=== PATIENT | female | born 1945 | race Caucasian/White ===

== ENCOUNTER 2020-04-25 12:48 | Inpatient (IN) | payer MEDICARE, OTHER, SELFPAY ==
[2020-04-25] VITALS (9 sets, daily range): BP systolic 112–154; BP diastolic 69–108; PULSE 80–102; RESP 16–20; TEMP 36.3–36.6; O2SAT 91–99; BMI 41.1
--- NOTE | 2020-04-25 13:10 | CT_ITS ---
WS: [id number] CT HEAD NONCONTRAST HISTORY: Symptoms of Acute Stroke TECHNIQUE: Contiguous axial imaging performed through the brain in 2.5 mm imaging. Bone and soft tiss ue windows. Sagittal and coronal reformats reviewed. All CT scans at [facility] use at le ast one of these dose optimization techniques: automated exposure control; mA and/or kV adjustment pe r patient size (includes targeted exams where dose is matched to clinical indication); or iterative r econstruction. DLP: 1194.41 mGy.cm COMPARISON: None available. No acute intracranial hemorrhage, midline shift or mass effect. Moderate atrophy and severe low attenuation within the white matter. Age indeterminate but not acute loss of the dawkins-white matter differentiation in the posterior RIGHT parietal region. There are addit ional areas of severe chronic white matter disease and prior lacunar infarcts in the basal ganglia. Ventricles: Normal size with no hydrocephalus. Moderate amount of calcified plaque through the intracranial carotid arteries. Paranasal sinuses: As visualized are clear. Mastoid air cells: Well pneumatized. Calvarium and scalp: Skull is intact with no soft tissue edema or swelling. CT/CT head wo con* [id number] IMPRESSION: 1. No acute intracranial hemorrhage or edema. 2. Severe white matter disease. Age-indeterminate posterior RIGHT parietal inf arct. May be subacute. There are additional chronic ischemic changes in bilater al lacunar infarcts with volume loss and encephalomalacia.
--- NOTE | 2020-04-25 13:10 | ECG_ITS ---
[facility] Test Date: 2020-04-25 Pat Name: Cathy Levin Department: Room: Gender: Female Operator Supply: : 1945 Requested By: Antohny Rivas Order Number: [id number] Debo MD: Joey Russell M.D. Measurements Intervals [place] Rate: 102 P: [place]: QRS: -7 QRSD: 85 T: 2 QT: 356 QTc: 464 Interpretive Statements ATRIAL FIBRILLATION WITH RAPID VENTRICULAR RESPONSE WITH ABERRANT CONDUCTION OR VENTRICULAR PREMATURE COMPLEXES ANTEROSEPTAL MYOCARDIAL INFARCTION , OF INDETERMINATE AGE [40+ ms Q WAVE IN V1-V4] No previous ECG available for comparison Electronically Signed On 04-25-2020 17:06:03 FACILITY TECHNICIAN by Joey Russell M.D. [id number]
--- NOTE | 2020-04-25 13:58 | ED_ITS ---
HPI - Altered Mental Status General: Chief Complaint: Altered Mental Status Stated Complaint: AMS Time Seen by Provider: 04/25/20 13:03 History of Present Illness: HPI narrative: 74-year-old female comes in complaining of altered mental status irritable disoriented is gotten markedly worse over the last 36 hours. She had a stroke 17 or 18 years ago according to her but this is new and different behavior for her. At her normal baseline there is no cognitive or memory issues that they noted in the past. She is complaining of headache and neck pain she has photophobia and autophobia. She denies chest pain shortness of breath abdominal pain dysuria urgency or frequency. MD complaint: altered mental status and confusion Onset (ago): day(s) (03/26) Timing confirmed by: spouse Severity: severe Consistency of symptoms: Getting Worse Associated symptoms: Deny auditory hallucinations, visual hallucinations, delusions, depression, homicidal ideation, racing thoughts or suicidal ideation Review of Systems Const: Denies: fever(s), chills, body aches, change in appetite, fatigue or malaise ENMT: Denies: throat pain, ear or mastoid pain, nasal discharge or nasal congestion Card: Denies: chest pain, edema, dyspnea on exertion or orthopnea Resp: Denies: dyspnea, productive cough or non-productive cough GI: Denies: abdominal pain, nausea, vomiting, hematemesis, coffee ground emesis, diarrhea, constipation, bloating, hematochezia or melena : Denies: flank pain, difficulty voiding, dysuria, urinary frequency or urinary urgency Skin/Breast: Denies: rash or pruritus Neuro: Reports: headache(s) Psych: Denies: depression, visual hallucinations, auditory hallucinations, suicidal ideation or homicidal ideation [facility] PFSH: Medical History (Updated 04/26/20 @ 10:01 by Anthony Mcclelland DO) CVA (cerebral vascular accident) Diabetes mellitus Hypertension Physical Exam HENMT: COMMON NORMALS: normocephalic, atraumatic and hearing grossly normal bilaterally HEAD & SCALP: normocephalic and atraumatic Eye: COMMON NORMALS: Equal, round and reactive pupils present, EOMs intact bilaterally, conjunctivae normal and no scleral icterus CONJUNCTIVA: Yes conjunctivae normal PUPIL: Yes Equal, round and reactive pupils present Neck/C-Spine: COMMON NORMALS: full ROM, no lymphadenopathy, supple and no JVD Lymph: LYMPHATIC: no lymphadenopathy noted and no lymphedema noted Resp: COMMON NORMALS: normal respiratory effort, No retractions, No use of accessory muscles and clear to auscultation bilaterally AUSCULTATION: clear to auscultation bilaterally Cardio: COMMON NORMALS: no JVD, regular rate, regular rhythm and No murmurs present (Cardio) RATE: regular rate RHYTHM: regular rhythm GI: COMMON NORMALS: Soft to palpation and No hepatosplenomegaly present AUSCULTATION: Yes normoactive bowel sounds PALPATION: Yes Soft to palpation, No Tenderness to palpation present (GI), No Guarding due to palpation present (GI) and Yes No hepatosplenomegaly present Extremity: COMMON NORMALS: normal to inspection, capillary refill normal, no clubbing, cyanosis or edema, no calf tenderness and no pedal edema Psych: THOUGHT CONTENT: No delusions Skin: COMMON NORMALS: no rashes or lesions noted GENERAL SKIN EXAM: no rashes or lesions noted Course Vital Signs: Vital signs: Vital Signs Temperature 97.5 F L 04/26/20 07:37 Pulse Rate 112 H 04/26/20 08:35 Respiratory Rate 18 04/26/20 07:37 Blood Pressure 141/84 04/26/20 07:37 Pulse Oximetry 92 04/26/20 08:35 MDM - Altered Mental Status MDM Narrative: Medical decision making narrative: Patient has UTI with along with altered mental status there is a question of subacute CVA. Will admit for further evaluation treatment for cystitis. Lab Data: Labs: Lab Results 04/25/20 04/25/20 04/25/20 Range/Units 14:26 14:30 14:30 WBC (4.0-10.0) 10^3/ uL RBC (4.1-5.3) 10^6/u L Hgb (11.5-15.3) g/dL Hct (37.0-47.0) % MCV (81-99) fL MCH (28.0-34.0) pg MCHC (30.0-36.0) g/dL RDW (12.1-15.1) % Plt Count (130-400) 10^3/c mm MPV (7.4-10.4) fL Neut % (Auto) % Lymph % (Auto) % [place] % (Auto) % Eos % (Auto) % Baso % (Auto) % Neut # (Auto) (1.8-7.7) 10^3/u L Lymph # (Auto) (0.8-4.8) 10^3/u L [place] # (Auto) (0.2-0.9) 10^3/u L Eos # (Auto) (0.0-0.8) 10^3/u L Baso # (Auto) (0.0-0.1) 10^3/u L Nucleated RBC % (a uto) % Nucleated RBCs # /100WBC PT (12.1-14.9) SECO NDS INR (0.8-1.2) APTT (23.9-36.7) SECO NDS Sodium Potassium Chloride Carbon Dioxide Anion Gap BUN Creatinine GFR Calculation Glucose POC Glucose 135 H (70-110) mg/dL Calculated Osmolal ity Calcium Total Bilirubin AST ALT Alkaline Phosphata se Total Protein Albumin Globulin Urine Color Dark yellow (Yellow) Urine Appearance Cloudy (CLEAR) Urine pH 5 (5-7) Ur Specific Gravit y 1.020 (1.005-1.030) Urine Protein 1+ H (Negative) Urine Glucose (UA) Norm (Normal) Urine Ketones 1+ H (Negative) Urine Blood 3+ H (Negative) Urine Nitrate Negative (Negative) Urine Bilirubin 1+ H (Negative) Urine Urobilinogen Norm (Negative) mg/dL Ur Leukocyte Key[place] ase 2+ H (Negative) Urine RBC 15-25 H (0-2) /hpf Urine WBC 40-55 H (0-5) /hpf Ur Squamous Epith Cells 0-4 H (0-5) /hpf Amorphous Sediment Not Reportable Urine Bacteria 4+ H (NONE) /hpf Urine Opiates Scre en Negative (Negative) ng/mL Ur Barbiturates Sc reen Negative (Negative) ng/mL Ur Phencyclidine S crn Negative (Negative) ng/mL Ur Amphetamines Sc reen Negative (Negative) ng/mL U Benzodiazepines Scrn Negative (Negative) ng/mL Urine Cocaine Scre en Negative (Negative) ng/mL U Marijuana (THC) Screen Negative (Negative) ng/mL 04/25/20 04/25/20 04/25/20 Range/Units 15:20 15:20 15:20 WBC 9.8 (4.0-10.0) 10^3/ uL RBC 5.19 (4.1-5.3) 10^6/u L Hgb 15.5 H (11.5-15.3) g/dL Hct 47.1 H (37.0-47.0) % MCV 90.8 (81-99) fL MCH 29.9 (28.0-34.0) pg MCHC 32.9 (30.0-36.0) g/dL RDW 13.2 (12.1-15.1) % Plt Count 319 (130-400) 10^3/c mm MPV 11.1 H (7.4-10.4) fL Neut % (Auto) 66.8 % Lymph % (Auto) 21.9 % [place] % (Auto) 7.9 % Eos % (Auto) 2.5 % Baso % (Auto) 0.5 % Neut # (Auto) 6.56 (1.8-7.7) 10^3/u L Lymph # (Auto) 2.2 (0.8-4.8) 10^3/u L [place] # (Auto) 0.8 (0.2-0.9) 10^3/u L Eos # (Auto) 0.3 (0.0-0.8) 10^3/u L Baso # (Auto) 0.1 (0.0-0.1) 10^3/u L Nucleated RBC % (a uto) 0 % Nucleated RBCs # 0.0 /100WBC PT 13.40 (12.1-14.9) SECO NDS INR 0.99 (0.8-1.2) APTT 25.0 (23.9-36.7) SECO NDS Sodium Cancelled Potassium Cancelled Chloride Cancelled Carbon Dioxide Cancelled Anion Gap Cancelled BUN Cancelled Creatinine Cancelled GFR Calculation Cancelled Glucose Cancelled POC Glucose (70-110) mg/dL Calculated Osmolal ity Cancelled Calcium Cancelled Total Bilirubin Cancelled AST Cancelled ALT Cancelled Alkaline Phosphata se Cancelled Total Protein Cancelled Albumin Cancelled Globulin Cancelled Urine Color (Yellow) Urine Appearance (CLEAR) Urine pH (5-7) Ur Specific Gravit y (1.005-1.030) Urine Protein (Negative) Urine Glucose (UA) (Normal) Urine Ketones (Negative) Urine Blood (Negative) Urine Nitrate (Negative) Urine Bilirubin (Negative) Urine Urobilinogen (Negative) mg/dL Ur Leukocyte [place] ase (Negative) Urine RBC (0-2) /hpf Urine WBC (0-5) /hpf Ur Squamous Epith Cells (0-5) /hpf Amorphous Sediment Urine Bacteria (NONE) /hpf Urine Opiates Scre en (Negative) ng/mL Ur Barbiturates Sc reen (Negative) ng/mL Ur Phencyclidine S crn (Negative) ng/mL Ur Amphetamines Sc reen (Negative) ng/mL U Benzodiazepines Scrn (Negative) ng/mL Urine Cocaine Scre en (Negative) ng/mL U Marijuana (THC) Screen (Negative) ng/mL 04/25/20 Range/Units 16:45 WBC (4.0-10.0) 10^3/ uL RBC (4.1-5.3) 10^6/u L Hgb (11.5-15.3) g/dL Hct (37.0-47.0) % MCV (81-99) fL MCH (28.0-34.0) pg MCHC (30.0-36.0) g/dL RDW (12.1-15.1) % Plt Count (130-400) 10^3/c mm MPV (7.4-10.4) fL Neut % (Auto) % Lymph % (Auto) % [place] % (Auto) % Eos % (Auto) % Baso % (Auto) % Neut # (Auto) (1.8-7.7) 10^3/u L Lymph # (Auto) (0.8-4.8) 10^3/u L [place] # (Auto) (0.2-0.9) 10^3/u L Eos # (Auto) (0.0-0.8) 10^3/u L Baso # (Auto) (0.0-0.1) 10^3/u L Nucleated RBC % (a uto) % Nucleated RBCs # /100WBC PT (12.1-14.9) SECO NDS INR (0.8-1.2) APTT (23.9-36.7) SECO NDS Sodium 139 Potassium 3.6 Chloride 105 Carbon Dioxide 21 L Anion Gap 16.6 BUN 19 Creatinine 0.9 GFR Calculation Not Reportable Glucose 132 H POC Glucose (70-110) mg/dL Calculated Osmolal ity 292 Calcium 10.7 H Total Bilirubin 0.8 AST 16 ALT 16 Alkaline Phosphata se 110 H Total Protein 7.2 Albumin 3.8 Globulin 3.4 Urine Color (Yellow) Urine Appearance (CLEAR) Urine pH (5-7) Ur Specific Gravit y (1.005-1.030) Urine Protein (Negative) Urine Glucose (UA) (Normal) Urine Ketones (Negative) Urine Blood (Negative) Urine Nitrate (Negative) Urine Bilirubin (Negative) Urine Urobilinogen (Negative) mg/dL Ur Leukocyte [place] ase (Negative) Urine RBC (0-2) /hpf Urine WBC (0-5) /hpf Ur Squamous Epith Cells (0-5) /hpf Amorphous Sediment Urine Bacteria (NONE) /hpf Urine Opiates Scre en (Negative) ng/mL Ur Barbiturates Sc reen (Negative) ng/mL Ur Phencyclidine S crn (Negative) ng/mL Ur Amphetamines Sc reen (Negative) ng/mL U Benzodiazepines Scrn (Negative) ng/mL Urine Cocaine Scre en (Negative) ng/mL U Marijuana (THC) Screen (Negative) ng/mL Discharge Plan Discharge Patient Disposition: Admitted As Inpatient Admit Provider: Derick Onofre Clinical Impression: UTI (urinary tract infection), Acute encephalopathy, Diabetes mellitus, Hypertension Condition: Stable Coding Level of Care Code ED Manual Lathe Operator for Antoniag Fwd Exam Comprehensive
--- NOTE | 2020-04-25 14:29 | PC.NURSE ---
pt and pt's spouse have been very abrasive to staff and resistant to care. pt spouse keeps mentioning that we dropped his on the floor last time . Pt and Pt's spouse state that we are not allowed to place an IV or draw blood until they are told for sure what medication will be administered through an IV. ED physician notified.
[2020-04-25 14:31] LABS: Glucose Point of Care 135 mg/dL (70-110)
[2020-04-25 14:47] LABS: Bilirubin Urine 1+ (Negative); Blood Urine 3+ (Negative); Glucose Urine UA Norm (Normal); Ketones Urine 1+ (Negative); Leukocyte Esterase Urine 2+ (Negative); Nitrate Urine Negative (Negative); Protein Urine 1+ (Negative); Urine Appearance Cloudy (CLEAR); Urine Color Dark Yellow (Yellow); Urobilinogen Urine Norm (Negative); pH Urine 5 (5-7)
[2020-04-25 14:48] LABS: Add Urine Microscopic? YES
[2020-04-25 14:53] LABS: Amphetamines Screen Urine Negative (Negative); Barbiturates Screen Urine Negative (Negative); Benzodiazepines Screen Urine Negative (Negative); Cocaine Screen Urine Negative (Negative); Opiate Screen Urine Negative (Negative); PCP Screen Urine Negative (Negative); THC Screen Urine Negative (Negative)
[2020-04-25 14:54] LABS: Add Urine Culture? Yes; Bacteria Urine 4+ /hpf; RBC Urine 15-25 /hpf (0-2); Squamous Epithelial Cell Urine 0-4 /hpf (0-5); WBC Urine 40-55 /hpf (0-5)
[2020-04-25 15:37] LABS: Basophils # 0.1 10^3/uL (0.0-0.1); Basophils % 0.5 %; Eosinophils # 0.3 10^3/uL (0.0-0.8); Eosinophils % 2.5 %; Hematocrit 47.1 % (37.0-47.0); Hemoglobin 15.5 g/dL (11.5-15.3); Lymphocytes # 2.2 10^3/uL (0.8-4.8); Lymphocytes % 21.9 %; Mean Corpuscular HGB Conc 32.9 g/dL (30.0-36.0); Mean Corpuscular Hemoglobin 29.9 pg (28.0-34.0); Mean Corpuscular Volume 90.8 fL (81-99); Mean Platelet Volume 11.1 fL (7.4-10.4); Monocytes # 0.8 10^3/uL (0.2-0.9); Monocytes % 7.9 %; Neutrophils # 6.56 10^3/uL (1.8-7.7); Neutrophils % 66.8 %; Nucleated Red Blood Cells % 0 %; Platelet Count 319 10^3/cmm (130-400); Red Blood Count 5.19 10^6/uL (4.1-5.3); Red Cell Distribution Width 13.2 % (12.1-15.1); White Blood Count 9.8 10^3/uL (4.0-10.0)
[2020-04-25 15:48] LABS: INR 0.99 (0.8-1.2)
[2020-04-25] MEDS: cefTRIAXone 1,000 MG in sodium chloride 0.9% (plus) 50 ML 100 MG IV (16:39)
--- NOTE | 2020-04-25 16:43 | PC.NURSE ---
pt continues to be abrasive towards staff. pt refuses to allow BP cuff to remain on arm or pulse ox on finger.
[2020-04-25 17:30] LABS: Alanine Aminotransferase 16 U/L (0-33); Albumin Level 3.8 g/dL (3.5-5.2); Alkaline Phosphatase 110 IU/L (35-105); Aspartate Amino Transferase 16 U/L (0-32); Blood Urea Nitrogen 19 mg/dL (8-23); Calcium 10.7 mg/dL (8.5-10.5); Carbon Dioxide 21 mmol/L (22-29); Chloride 105 mmol/L (98-107); Globulin 3.4 g/dL (1.3-4.6); Glucose 132 mg/dL (65-115); Osmolality Calculated 292 mOsm/kg (285-295); Sodium 139 mmol/L (136-145); Total Bilirubin 0.8 mg/dL (0.15-1.2); Total Protein 7.2 g/dL (6.6-8.7)
[2020-04-25 17:49] LABS: Anion Gap 16.6 (5-19); Potassium 3.6 mmol/L (3.5-5.1)
--- NOTE | 2020-04-25 18:12 | XRR_ITS ---
PROCEDURE INFORMATION: Exam: XR Chest, 1 View Exam date and time: 04/25/2020 6:14 PM Age: 74 years old Clinical indication: Shortness of breath; Patient HX: Altered mental status, no chest complaints; Additional info: SOB TECHNIQUE: Imaging protocol: XR of the chest Views: 1 view. COMPARISON: No relevant prior studies available. FINDINGS: Lungs: Lungs are well aerated without a focal area of consolidation. Pleural spaces: Unremarkable. No pleural effusion. No pneumothorax. Heart/Mediastinum: The cardiac silhouette appears enlarged, some of which is magnification related to the AP projection. Bones/joints: Unremarkable. XR/XR chest 1V portable [id number] IMPRESSION: Lungs are well aerated without a focal area of consolidation.
--- NOTE | 2020-04-25 18:12 | PM.HP ---
Providers/Chief Complaint Primary Care Provider: Omer Caban DO Chief Complaint: AMS History of Present Illness Cathy Levin is a 74 year old female with PMH of CVA with residual rt sided weakness,HTN,DM, came in with c/o experiencing fall 3 days back at her home after that she is also having some confusion and headache.Post fall she deny any loss of consciousness,or any seizure like activity. Upon arrival in the ER she was worked up for the above mentioned complain. C.T head without Contrast: No acute intracranial hemorrhage or edema.Severe white matter disease. EKG: Atrial Fibrillation. Xray chest: Urine Analysis : Dirty ECA medications: Cef 1 gm * 1 dose Morphine 2 MG I.V * 1 DOSE as per ER Physician. Review of Systems Const: Denies: fever(s), chills, body aches, change in appetite or diaphoresis Card: Denies: palpitations, edema, swelling of feet/ankles, dyspnea on exertion, orthopnea or leg pain with exertion Resp: Denies: dyspnea, productive cough, wheezing or pain on inspiration GI: Denies: abdominal pain, nausea, vomiting, diarrhea or constipation : Denies: flank pain Musc: Denies: back pain, extremity pain or extremity swelling Medications/Allergies Home Medications Medication Instructions Recorded Confirmed Last Taken Type amlodipine 10 mg PO QAM 04/25/20 04/25/20 04/25/20 History aspirin [Aspir-81] 81 mg PO BID 04/25/20 04/25/20 Unknown History glimepiride 6 mg PO QAM 04/25/20 04/25/20 04/25/20 History losartan 100 mg PO DAILY 04/25/20 04/25/20 Unknown History metformin 1,000 mg PO BID 04/25/20 04/25/20 04/25/20 History metoprolol tartrate 100 mg PO BID 04/25/20 04/25/20 04/25/20 History naproxen sodium [Aleve] 220 mg PO Q12H PRN 04/25/20 04/25/20 Unknown History Allergies Allergy/AdvReac Type Severity Reaction Status Date / Time eye drops Allergy ADR-Itching Uncoded 04/25/20 13:08 PFSH Acute PFSH: Medical History (Updated 04/25/20 @ 18:51 by Derick Onofre MD) CVA (cerebral vascular accident) Diabetes mellitus Hypertension Vitals/I&O/Wt Last Vital Signs Temp 97.3 F L 04/25/20 13:02 Pulse 98 04/25/20 16:42 Resp 19 H 04/25/20 16:42 BP 154/104 04/25/20 17:07 Pulse Ox 95 04/25/20 14:30 Weight last 48 hrs Weight 108.862 kg Physical Exam Const: COMMON NORMALS: patient oriented x3 HENMT: COMMON NORMALS: normocephalic and atraumatic HEAD & SCALP: normocephalic and atraumatic Chest: CHEST: Yes Symmetrical chest wall rise Resp: COMMON NORMALS: normal respiratory effort and clear to auscultation bilaterally EFFORT & INSPECTION: Yes symmetric chest movement AUSCULTATION: clear to auscultation bilaterally Cardio: COMMON NORMALS: regular rate, regular rhythm, S1 normal heart sound present, S2 normal heart sound present, No gallops present (Cardio), No murmurs present (Cardio), No rub (Cardio) and Peripheral pulses 2+ throughout RATE: regular rate RHYTHM: regular rhythm HEART SOUNDS: S1 normal heart sound present and S2 normal heart sound present PERIPHERAL PULSES: Peripheral pulses 2+ throughout GI: COMMON NORMALS: Normal to inspection, nondistended, normoactive bowel sounds present, Soft to palpation, non-tender, No hepatosplenomegaly present and no masses AUSCULTATION: Yes normoactive bowel sounds PALPATION: Yes Soft to palpation and Yes No hepatosplenomegaly present RECTAL EXAM: deferred Extremity: COMMON NORMALS: no clubbing, cyanosis or edema and no pedal edema Neuro: COMMON NORMALS: patient oriented x3 Data : 04/25/20 15:20 04/25/20 16:45 Micro: Microbiology 04/25/20 16:45 Blood Culture - Preliminary Blood SPECIMEN COLLECTED 04/25/20 16:45 Blood Culture - Preliminary Blood SPECIMEN COLLECTED A&P Assessment and plan (1) Acute encephalopathy: Ac Encephalopathy likely 2/2 UTI r/o other causes C.T head without Contrast: No acute intracranial hemorrhage or edema.Severe white matter disease. EKG: Atrial Fibrillation. Xray chest: Urine Analysis: Dirty MRI Brain without Contrast 2 D ECHO Carotid Doppler Urine Culture Tele Cef 1 gm q24 h daily Status: Acute (2) Afib: New Onset A.fib Continue Metoprolol.T : 100 MG PO BID Eliquis 5 MG Q12 H Daily Status: Acute (3) UTI (urinary tract infection): Status: Acute (4) CVA (cerebral vascular accident): Status: Acute (5) Hypertension: Status: Acute (6) Diabetes mellitus: Status: Acute Additional A&P Information DVT PPX : Lovenox 40 mg sc daily Code status :Full code Attestations Medical Necessity Statement*: Patient needs to be in hospital for the management and work up of Ac Encephalopathy. Coding Level of Care Code Acute Folder Taper Operator for g Fwd Exam Detailed Diagnoses Acute encephalopathy G93.40 Afib I48.91 UTI (urinary tract infection) N39.0 CVA (cerebral vascular accident) I63.9 Hypertension I10 Diabetes mellitus E11.9
[2020-04-25] MEDS: morphine 4 mg/mL SDV 1 mL IVP (18:23)
--- NOTE | 2020-04-25 18:48 | ECG_ITS ---
[facility] Test Date: 2020-04-25 Pat Name: Cathy Levin Department: Room: 254 Gender: Female Safety Admin Assistant: : 1945 Requested By: Derick Onofre Order Number: [id number] Reading MD: CELSA SHERWOOD Measurements Intervals [place] Rate: 104 P: [place]: QRS: -12 QRSD: 88 T: -61 QT: 344 QTc: 454 Interpretive Statements ATRIAL FIBRILLATION WITH RAPID VENTRICULAR RESPONSE ANTEROSEPTAL MYOCARDIAL INFARCTION [40+ ms Q WAVE IN V1-V4], OF INDETERMINATE AGE Compared to ECG 04/25/2020 13:07:52 Aberrant conduction of supraventricular beat(s) no longer present Ventricular premature complex(es) no longer present Myocardial infarct finding still present Electronically Signed On 04-26-2020 18:10:12 BARREL DRILLER by CELSA SHERWOOD [id number]
--- NOTE | 2020-04-25 19:08 | PC.NURSE ---
report received from AZAM Joe and care transferred to AZAM Mukherjee
--- NOTE | 2020-04-25 20:00 | NUR.SHIFT ---
Andrea RN at bedside with this nurse Patient's NIHSS scale is a 1 at this time.
[2020-04-25 20:58] LABS: Glucose Point of Care 112 mg/dL (70-110)
--- NOTE | 2020-04-25 21:01 | ECG_ITS ---
[facility] Test Date: 2020-04-25 Pat Name: Cathy Levin Department: Room: 254 Gender: Female Sales Floor Manager: : 1945 Requested By: Derick Onofre Order Number: [id number] Reading MD: CELSA SHERWOOD Measurements Intervals [place] Rate: 103 P: [place]: QRS: -13 QRSD: 94 T: 0 QT: 303 QTc: 398 Interpretive Statements ATRIAL FIBRILLATION WITH RAPID VENTRICULAR RESPONSE ANTEROSEPTAL MYOCARDIAL INFARCTION [40+ ms Q WAVE IN V1-V4], OF INDETERMINATE AGE Compared to ECG 04/25/2020 22:36:15 No significant changes Electronically Signed On 04-26-2020 18:02:42 DISTRIBUTION CENTER SUPERVISOR by CELSA SHERWOOD [id number]
[2020-04-25] MEDS: HYDROcodone-acetaminophen 5-325 mg Tablet 1 TAB PO (21:37)
[2020-04-25 21:46] LABS: Troponin(5th) Baseline 13 ng/L (0-10)
[2020-04-25] MEDS: enoxaparin 40 mg/0.4 mL Syringe SUBCUT (23:08)
[2020-04-25] MEDS: sodium chloride 0.9% 1,000 ML 100 ML IV (23:08)
[2020-04-25 23:15] LABS: SARS Covid-2 Antigen Negative (Negative)
[2020-04-25 23:24] LABS: Troponin 5 2HR 12.63 ng/L (0-10)
[2020-04-25 23:31] LABS: Troponin 5 2HR Delta -0.37 ABS# (0-10)
[2020-04-26] VITALS (7 sets, daily range): BP systolic 110–141; BP diastolic 78–88; PULSE 81–112; RESP 16–20; TEMP 36.4–37.2; O2SAT 90–96
[2020-04-26 03:12] LABS: Basophils % 0.3 %; Eosinophils # 0.3 10^3/uL (0.0-0.8); Eosinophils % 3.2 %; Hematocrit 42.1 % (37.0-47.0); Hemoglobin 13.6 g/dL (11.5-15.3); Lymphocytes # 1.9 10^3/uL (0.8-4.8); Lymphocytes % 21.6 %; Mean Corpuscular HGB Conc 32.3 g/dL (30.0-36.0); Mean Corpuscular Hemoglobin 29.8 pg (28.0-34.0); Mean Corpuscular Volume 92.3 fL (81-99); Mean Platelet Volume 11.4 fL (7.4-10.4); Monocytes # 0.8 10^3/uL (0.2-0.9); Monocytes % 8.8 %; Neutrophils % 65.7 %; Nucleated Red Blood Cells % 0 %; Platelet Count 293 10^3/cmm (130-400); Red Blood Count 4.56 10^6/uL (4.1-5.3); Red Cell Distribution Width 13.2 % (12.1-15.1)
[2020-04-26 03:53] LABS: INR 1.07 (0.8-1.2)
[2020-04-26 03:54] LABS: Partial Thromboplastin Time 32.4 SECONDS (23.9-36.7)
[2020-04-26 04:11] LABS: NT Pro B Type Natriuretic Pept 1889 pg/mL (0-125); Procalcitonin 0.13 ng/mL (0-0.5)
[2020-04-26 04:14] LABS: Albumin Level 3.4 g/dL (3.5-5.2); Alkaline Phosphatase 121 IU/L (35-105); Blood Urea Nitrogen 17 mg/dL (8-23); Calcium 10.2 mg/dL (8.5-10.5); Carbon Dioxide 22 mmol/L (22-29); Chloride 108 mmol/L (98-107); Glucose 105 mg/dL (65-115); Magnesium 1.5 mg/dL (1.7-2.3); Osmolality Calculated 292 mOsm/kg (285-295); Sodium 140 mmol/L (136-145); Thyroid Stimulating Hormone 2.79 uIU/mL (0.27-4.20); Total Bilirubin 0.8 mg/dL (0.15-1.2); Total Protein 6.4 g/dL (6.6-8.7)
[2020-04-26 04:22] LABS: Alanine Aminotransferase 44 U/L (0-33); Anion Gap 13.3 (5-19); Aspartate Amino Transferase 79 U/L (0-32); Potassium 3.3 mmol/L (3.5-5.1)
[2020-04-26 04:29] LABS: Troponin 5 6HR 14.47 ng/L (0-10); Troponin 5 6HR Delta 1.47 ng/L (0-12)
--- NOTE | 2020-04-26 07:13 | PC.NURSE ---
Report to Criss Conrad RN. Patient scored a 1 on her NIH scale. Patient is at bedside. Patient is a 2 assist to get to the bedside commode.
[2020-04-26] MEDS: HYDROcodone-acetaminophen 5-325 mg Tablet 1 TAB PO (07:31)
--- NOTE | 2020-04-26 08:30 | PC.NURSE ---
Extrusion Die Template Maker received phone call from MRI stating that patient would be able to get her MRI at 1015 today. at bedside is in agreement with this as long as patient is able to be sedated for the MRI as she is severely claustrophobic. Extrusion Die Template Maker spoke with Dr. Onofre and it was said that there was a one time order for Ativan 2mg IVP to be given prior to MRI yesterday. I explained to Dr. Onofre that the order was no longer active and would need to be renewed. Dr. Onofre ok with new order to be placed. Patient to be given Ativan 2mg IVP prior to MRI. Verbal order placed in chart
[2020-04-26] MEDS: sodium chloride 0.9% 1,000 ML 100 ML IV (08:49)
[2020-04-26] MEDS: aspirin 81 mg EC Tablet PO (08:50)
--- NOTE | 2020-04-26 09:20 | PC.NURSE ---
Patient observed to be having heart rate of 130-[address] Onofre notified in person and rate/rhythm reviewed with Dr. Onofre. Per Dr. Onofre patient is to have Metoprolol 5mg IVP now and to continue her Metoprolol 100 mg BID from home with her first dose starting now. Dr. Onofre also gave verbal order for Metoprolol 5 mg IVP Q6H PRN for heart rate greater than 120 but to hold if her SBP was less than 120. All verbal orders read back and entered in computer with Dr. Onofre present to confirm.
[2020-04-26] MEDS: metoprolol tartrate 1 mg/1 mL SDV 5 mL 5 MG IV (09:48)
[2020-04-26] MEDS: metoprolol tartrate 50 mg Tablet 100 MG PO ×2 (09:49→20:35)
[2020-04-26] MEDS: LORazepam 2 mg/mL INJ 1 mL IVP (10:09)
--- NOTE | 2020-04-26 10:10 | PC.NURSE ---
Ambulance personnel here to take patient for her MRI. Ativan 2mg IVP given as ordered per Dr. Onofre for sedation. It was verbalized to ambulance personnel that patient had been running tachycardia and in AFIB and that patient had just received a dose of metoprolol 5mg IVP to drop her heart rate from 130-180. Ambulance personnel verbalized understanding. Patient's heart rate verified on telemetry running at 113-120. Telemetry removed and patient assisted to [facility]3 assist due to sedation.
--- NOTE | 2020-04-26 10:43 | P.PN_ITS ---
Subjective Subjective: Interval history: Patient was seen and examined this morning, she was complaining of headache, but denied any other complain. Her Vitals and labs have been reviewed. Vitals/I&O/Wt Last Vital Signs Temp 97.5 F L 04/26/20 07:37 Pulse 112 H 04/26/20 08:35 Resp 18 04/26/20 07:37 BP 141/84 04/26/20 07:37 Pulse Ox 92 04/26/20 08:35 04/25/20 04/26/20 04/26/20 22:59 06:59 14:59 Intake Total 800 / 800 686.667 / 1779.825 7325.667 / 1641.667 Output Total 200 / 200 400 / 600 150 / 150 Balance 600 / 600 286.667 / 196.328 6313.667 / 1491.667 Weight last 48 hrs Weight 108.862 kg Physical Exam Const: COMMON NORMALS: patient oriented x3 HENMT: COMMON NORMALS: normocephalic and atraumatic HEAD & SCALP: normocephalic and atraumatic Chest: CHEST: Yes Symmetrical chest wall rise Resp: COMMON NORMALS: normal respiratory effort and clear to auscultation bilaterally EFFORT & INSPECTION: Yes symmetric chest movement AUSCULTATION: clear to auscultation bilaterally Cardio: COMMON NORMALS: regular rate, regular rhythm, S1 normal heart sound present, S2 normal heart sound present, No gallops present (Cardio), No murmurs present (Cardio), No rub (Cardio) and Peripheral pulses 2+ throughout RATE: regular rate RHYTHM: regular rhythm HEART SOUNDS: S1 normal heart sound present and S2 normal heart sound present PERIPHERAL PULSES: Peripheral pulses 2+ throughout GI: COMMON NORMALS: Normal to inspection, nondistended, normoactive bowel sounds present, Soft to palpation, non-tender, No hepatosplenomegaly present and no masses AUSCULTATION: Yes normoactive bowel sounds PALPATION: Yes Soft to palpation and Yes No hepatosplenomegaly present RECTAL EXAM: deferred Extremity: COMMON NORMALS: no clubbing, cyanosis or edema and no pedal edema Neuro: COMMON NORMALS: patient oriented x3 Data : 04/26/20 02:46 04/26/20 02:46 Micro: Microbiology 04/25/20 16:45 Blood Culture - Preliminary Blood SPECIMEN COLLECTED 04/25/20 16:45 Blood Culture - Preliminary Blood SPECIMEN COLLECTED A&P Assessment and plan (1) Acute encephalopathy: Ac Encephalopathy 2/2 CVA / UTI C.T head without Contrast: No acute intracranial hemorrhage or edema.Severe white matter disease. EKG: Atrial Fibrillation. MRI Brain without Contrast:Moderate size acute to subacute infarct involving the RIGHT parietal and medial RIGHT temporal lobe with an additional tiny lacunar infarct in the RIGHT frontal cortex. No hemorrhage. Mild cerebral atrophy with moderate chronic microvascular ischemic changes. Xray chest:Lungs are well aerated without a focal area of consolidation Urine Analysis: Dirty TSH: 2.79 Procal: 0.13 Utox:Negative 2 D ECHO: Carotid Doppler: Urine Culture: Blood Culture : Rapid COVID : Negative Tele:A.fib Aspirin 81 mg po daily Plavix 75 mg po daily Lipitor 80 mg po daily Cef 1 gm q24 h daily Status: Acute (2) Afib: New Onset A.fib Continue Metoprolol.T : 100 MG PO BID Eliquis 5 MG Q12 H Daily Status: Acute (3) UTI (urinary tract infection): Status: Acute (4) CVA (cerebral vascular accident): Status: Acute (5) Elevated troponin: Likely TYPE II M.I Status: Acute (6) Hypokalemia: Status: Acute (7) Hypertension: Status: Acute (8) Diabetes mellitus: Status: Acute Additional A&P Information DVT PPX : Lovenox 40 mg sc daily Code status :Full code Attestations Medical Necessity Statement*: Patient needs to be in hospital for the manage ment of Ac encephalopathy 2/2 CVA/UTI Coding Level of Care Code Acute Music Mixer for [facility] Diagnoses Acute encephalopathy G93.40 Afib I48.91 UTI (urinary tract infection) N39.0 CVA (cerebral vascular accident) I63.9 Elevated troponin R77.8 Hypokalemia E87.6 Hypertension I10 Diabetes mellitus E11.9
--- NOTE | 2020-04-26 11:30 | PC.NURSE ---
Patient back from MRI. Patient back to bed with max assist. Patient still sedated but now on 2 L NC due to oxygen saturations dropping while in the ambulance. Her heart rate is 80 but still AFIB. Respirations even and unlabored.
[2020-04-26 11:59] LABS: Glucose Point of Care 101 mg/dL (70-110)
[2020-04-26 12:10] LABS: Glucose Point of Care 163 mg/dL (70-110)
[2020-04-26 16:04] LABS: Glucose Point of Care 129 mg/dL (70-110)
[2020-04-26] MEDS: enoxaparin 40 mg/0.4 mL Syringe SUBCUT (17:25)
[2020-04-26] MEDS: potassium chloride ER 20 mEq Tablet 40 MEQ PO (17:25)
[2020-04-26] MEDS: cefTRIAXone 1,000 MG in sodium chloride 0.9% (plus) 50 ML 100 MG IV (17:26)
--- NOTE | 2020-04-26 17:36 | MR_ITS ---
WS: [id number] MRI BRAIN WITHOUT CONTRAST HISTORY: AMS COMPARISON: CT head 04/25/2020 TECHNIQUE: Diffusion imaging, multiplanar T1, T2 and FLAIR imaging obtained. Acute to subacute infarct is noted involving the posterior RIGHT parietal and the medial RIGHT tempor al lobe. Additional tiny lacunar infarct which is acute involving the cortex of the anterior RIGHT fr ontal lobe. No associated hemorrhage. No midline shift. There is mild atrophy which is diffuse and moderate chronic microvascular ischemic changes within the white matter. Prior lacunar infarcts in the inferior LEFT basal ganglia and bilateral padilla radiata . Ventricles and extra-axial spaces are normal. No inferior displacement of cerebellar tonsils. The sella turcica and pituitary gland are unremarkabl e. Posterior fossa is also unremarkable. Dural venous sinuses and [place] demonstrate no abnormality on this unenhanced studies. Paranasal sinuses: Clear. Mastoid air cells: Normal. Calvarium and scalp: Intact. MR/MR head wo con* [id number] IMPRESSION: 1. Moderate size acute to subacute infarct involving the RIGHT parietal and me dial RIGHT temporal lobe with an additional tiny lacunar infarct in the RIGHT f rontal cortex. No hemorrhage. 2. Mild cerebral atrophy with moderate chronic microvascular ischemic changes.
[2020-04-26] MEDS: clopidogrel 75 mg Tablet PO (18:28)
--- NOTE | 2020-04-26 18:35 | USCV_ITS ---
Cathy Levin Age: 74 Gender: F : 1945 Exam Date: 04/26/2020 06:46 Ordering Phys: Derick Onofre MD Technologist: Deshaun Adorno [place] [facility] [place]: CHEST PAIN BP: 120 / 78 HR: 108 Rhythm: Sinus Technical Quality: Very technically difficult study MEASUREMENTS (Male / Female) Normal Values 2D ECHO LV Diastolic Diameter PLAX 4.7 cm 4.2 - 5.9 / 3.9 - 5.3 cm LV Systolic Diameter PLAX 3.9 cm IVS Diastolic Thickness 1.2 cm 0.6 - 1.0 / 0.6 - 0.9 cm IVS Systolic Thickness 1.2 cm LVPW Diastolic Thickness 1.3 cm 0.6 - 1.0 / 0.6 - 0.9 cm LVPW Systolic Thickness 1.3 cm LVOT Diameter 2.0 cm LV Ejection Fraction 2D Teich 36.5 % LV Ejection Fraction MOD 2C 61.2 % LV Ejection Fraction 2C AL 61.5 % LA Diameter 3.8 cm LA Width 4.1 cm LA Height 4.1 cm RA Width 3.4 cm RA Height 4.6 cm Aorta at Sinotubular Diameter 3.0 cm M-MODE LV Diastolic Diameter MM 4.6 cm 4.2 - 5.9 / 3.9 - 5.3 cm LV Systolic Diameter MM 3.1 cm LV Ejection Fraction MM Teich 62.1 % IVS Diastolic Thickness MM 0.9 cm 0.6 - 1.0 / 0.6 - 0.9 cm IVS Systolic Thickness MM 1.0 cm LVPW Diastolic Thickness MM 1.2 cm 0.6 - 1.0 / 0.6 - 0.9 cm LVPW Systolic Thickness MM 1.3 cm RV Diastolic Diameter MM 1.8 cm Aortic Annulus Diameter 2.8 cm LA Ao Ratio MM 1.2 MV E Point Septal Separation 0.7 cm DOPPLER AV Peak Velocity 115.0 cm/s LVOT Peak Velocity 96.0 cm/s AV Area Cont Eq vti 3.0 cm squared AV Area Cont Eq pk 2.7 cm squared MV Area PHT 3.7 cm squared Mitral E to A Ratio 2.5 MV E' Velocity 42.0 cm/s Mitral E to MV E' Ratio 6.3 Mitral E to LV E' Lateral Ratio 5.9 Mitral E to LV E' Septal Ratio 6.8 TR Peak Velocity 281.0 cm/s TR Peak Gradient 31.6 mmHg TV Peak E Velocity 110.0 cm/s Right Atrial Pressure 3.0 mmHg Pulmonary Artery Systolic Pressu 34.6 mmHg PV Peak Velocity 105.0 cm/s FINDINGS Left Ventricle Possibly normal LV size with diffuse hypokinesia. Technically difficult study because of the poor ultrasonic window. The study could not evaluate the wall motion abnormalities. Ejection fraction around 40%. Patient was found to be tachycardic during the study Right Ventricle Appears to be of normal size and ejection fraction Right Atrium Possibly of normal size . Left Atrium Mildly increased left atrial size. Mitral Valve Thickened mitral valve. Moderate mitral annular calcification. Aortic Valve Morphology could not be delineated well Tricuspid Valve Morphology could not be delineated well Pulmonic Valve No gross abnormalities no Pericardium No pericardial effusion. Aorta Normal aortic annulus size. CONCLUSIONS Possibly normal LV size with diminished ejection fraction of around 40%. Left ventricle appears to be diffusely hypokinetic. The patient was found to be tachycardic during the study Mildly increased left atrial size. Thickened mitral valve. Moderate mitral annular calcification. There is no pericardial effusion. Technically difficult study because of the poor ultrasonic window. Comparison with the previous study is difficult because of the difference in the technical quality. The LV ejection fraction was 45% on 10/14/2017 Dr Migdalia Chilel MD [facility] (Electronically Signed) Final Date: 26 April 2020 20:54 S
--- NOTE | 2020-04-26 18:35 | USCV_ITS ---
Cathy Levin Age: 74 Gender: F : 1945 Exam Date: 04/26/2020 06:05 Ordering Phys: eDrick Onofre MD Technologist: Marianne Dugan Exam Location: [facility] – [place] Indication: DIZZINESS Risk Factors: Previous Vascular Surgery: Right Brachial BP: / Left Brachial BP: / Right Left Velocity (cm/s) Spectral Plaque Velocity (cm/s) Spectral Plaque Syst/Diast Broadening Syst/Diast Broadening 75.20/ 12.00 Prox CCA 78.80 / 13.10 62.40/ 12.00 Mid CCA 80.50 / 18.70 50.50/ 11.70 Distal CCA 93.70 / 18.70 38.80/ 10.10 Prox ICA 60.60 / 14.40 40.30/ 14.50 Mid ICA 56.60 / 14.90 40.60/ 13.70 Distal ICA 57.30 / 18.80 81.60 ECA 105.80 0.54 ICA/CCA 0.65 Antegrade Vertebral Antegrade 40.40/ 10.90 cm/s 36.70/ 10.30 cm/s Tri Subclavian Tri 144.5 84.60 0 FINDINGS Moderate dense plaques at the left bifurcation and proximal internal carotid artery Minimal plaques at the right bifurcation and proximal internal carotid artery Antegrade flow in the vertebral arteries bilaterally Normal Doppler flow velocities in the external carotid arteries bilaterally Normal Doppler flow pattern in the subclavian arteries bilaterally CONCLUSIONS Moderate dense plaques at the left bifurcation and proximal internal carotid artery, with the Doppler characteristics suggesting less than 50% stenosis Minimal plaques at the right bifurcation and proximal internal carotid artery No significant stenosis in the vertebral or subclavian arteries, based on the above findings No similar previous studies are available for comparison Dr Migdalia Chilel MD [facility] (Electronically Signed) Final Date: 26 April 2020 20:30 S
[2020-04-26 20:30] LABS: Glucose Point of Care 228 mg/dL (70-110)
[2020-04-26] MEDS: atorvastatin 40 mg Tablet 80 MG PO (20:35)
[2020-04-27] VITALS (15 sets, daily range): BP systolic 119–148; BP diastolic 74–89; PULSE 88–115; RESP 18; TEMP 36.6–37.2; O2SAT 93–95
[2020-04-27] MEDS: HYDROcodone-acetaminophen 5-325 mg Tablet 1 TAB PO ×3 (01:02→21:48)
[2020-04-27 06:29] LABS: Alanine Aminotransferase 29 U/L (0-33); Albumin Level 3.3 g/dL (3.5-5.2); Alkaline Phosphatase 120 IU/L (35-105); Anion Gap 14.3 (5-19); Aspartate Amino Transferase 24 U/L (0-32); Blood Urea Nitrogen 13 mg/dL (8-23); Calcium 10.2 mg/dL (8.5-10.5); Carbon Dioxide 22 mmol/L (22-29); Chloride 107 mmol/L (98-107); Globulin 3.2 g/dL (1.3-4.6); Glucose 169 mg/dL (65-115); Osmolality Calculated 294 mOsm/kg (285-295); Potassium 3.3 mmol/L (3.5-5.1); Sodium 140 mmol/L (136-145); Total Bilirubin 0.7 mg/dL (0.15-1.2); Total Protein 6.5 g/dL (6.6-8.7)
[2020-04-27 06:29] LABS: Glucose Point of Care 198 mg/dL (70-110)
[2020-04-27 06:50] LABS: Basophils # 0.1 10^3/uL (0.0-0.1); Basophils % 0.7 %; Eosinophils # 0.3 10^3/uL (0.0-0.8); Eosinophils % 4.2 %; Hematocrit 46.8 % (37.0-47.0); Hemoglobin 15.6 g/dL (11.5-15.3); Lymphocytes % 26.9 %; Mean Corpuscular HGB Conc 33.3 g/dL (30.0-36.0); Mean Corpuscular Hemoglobin 30.3 pg (28.0-34.0); Mean Corpuscular Volume 90.9 fL (81-99); Mean Platelet Volume 11.7 fL (7.4-10.4); Monocytes # 0.7 10^3/uL (0.2-0.9); Monocytes % 9.5 %; Neutrophils # 4.26 10^3/uL (1.8-7.7); Neutrophils % 58.2 %; Nucleated Red Blood Cells % 0 %; Platelet Count 232 10^3/cmm (130-400); Red Blood Count 5.15 10^6/uL (4.1-5.3); Red Cell Distribution Width 13.2 % (12.1-15.1); White Blood Count 7.3 10^3/uL (4.0-10.0)
[2020-04-27] MEDS: aspirin 81 mg EC Tablet PO (08:26)
[2020-04-27] MEDS: metoprolol tartrate 50 mg Tablet 100 MG PO ×2 (08:26→20:10)
[2020-04-27] MEDS: clopidogrel 75 mg Tablet PO (08:26)
--- NOTE | 2020-04-27 10:02 | XR_ITS ---
WS: [id number] Bilateral hips, AP and frog leg views, 04/27/2020 Clinical Data: pain Comparison: None. Findings: Right hip: No fractures or dislocations are seen. No narrowing, erosion or sclerosis is present. There is calcif ication in the [place] of the iliac and femoral arteries. Left hip: No fractures or dislocations are seen. No narrowing, erosion or sclerosis of the hip is seen. There i s calcification in the wall of the superficial femoral artery. XR/XR hip BI 3-4V wo/w pel [id number] Impression: Negative bilateral hips.
--- NOTE | 2020-04-27 10:53 | PM.PN ---
Subjective Subjective: Interval history: Patient was seen and examined this morning, she was comfortably laying in bed. She has no speech difficulty, has no difficulty swallowing, she is eating well. Her Vitals and labs have been reviewed. Vitals/I&O/Wt Last Vital Signs Temp 98.2 F 04/27/20 09:41 Pulse 100 04/27/20 09:41 Resp 18 04/27/20 09:41 BP 119/79 04/27/20 09:41 Pulse Ox 93 04/27/20 05:12 04/26/20 04/27/20 04/27/20 22:59 06:59 14:59 Intake Total 170 / 1863.667 240 / 240 Output Total 400 / 550 150 / 700 Balance -230 / 1313.667 -150 / 1163.667 240 / 240 Weight last 48 hrs Weight 108.862 kg Physical Exam Const: COMMON NORMALS: patient oriented x3 HENMT: COMMON NORMALS: normocephalic and atraumatic HEAD & SCALP: normocephalic and atraumatic Chest: CHEST: Yes Symmetrical chest wall rise Resp: COMMON NORMALS: normal respiratory effort and clear to auscultation bilaterally EFFORT & INSPECTION: Yes symmetric chest movement AUSCULTATION: clear to auscultation bilaterally Cardio: COMMON NORMALS: regular rate, regular rhythm, S1 normal heart sound present, S2 normal heart sound present, No gallops present (Cardio), No murmurs present (Cardio), No rub (Cardio) and Peripheral pulses 2+ throughout RATE: regular rate RHYTHM: regular rhythm HEART SOUNDS: S1 normal heart sound present and S2 normal heart sound present PERIPHERAL PULSES: Peripheral pulses 2+ throughout GI: COMMON NORMALS: Normal to inspection, nondistended, normoactive bowel sounds present, Soft to palpation, non-tender, No hepatosplenomegaly present and no masses AUSCULTATION: Yes normoactive bowel sounds PALPATION: Yes Soft to palpation and Yes No hepatosplenomegaly present RECTAL EXAM: deferred Extremity: COMMON NORMALS: no clubbing, cyanosis or edema and no pedal edema Neuro: COMMON NORMALS: patient oriented x3 Data : 04/27/20 05:23 04/27/20 05:23 Micro: Microbiology 04/25/20 14:30 Urine Culture - Preliminary Urine,Clean Catch Gram Negative Rods 04/25/20 16:45 Blood Culture - Preliminary Blood NEGATIVE TO DATE 04/25/20 16:45 Blood Culture - Preliminary Blood NEGATIVE TO DATE A&P Assessment and plan (1) Acute encephalopathy: Ac Encephalopathy 2/2 CVA / UTI C.T head without Contrast: No acute intracranial hemorrhage or edema.Severe white matter disease. EKG: Atrial Fibrillation. MRI Brain without Contrast:Moderate size acute to subacute infarct involving the RIGHT parietal and medial RIGHT temporal lobe with an additional tiny lacunar infarct in the RIGHT frontal cortex. No hemorrhage. Mild cerebral atrophy with moderate chronic microvascular ischemic changes. Xray chest:Lungs are well aerated without a focal area of consolidation Urine Analysis: Dirty TSH: 2.79 Procal: 0.13 Utox:Negative 2 D ECHO:: normal LV size, LVEF : 45 % . Left ventricle appears to be diffusely hypokinetic. Carotid Doppler: Non Occlusive carotid study. Urine Culture:GNR Blood Culture :NTD Rapid COVID : Negative Tele:A.fib Xray B/L Hip: No fractures or dislocations are seen. Aspirin 81 mg po daily Plavix 75 mg po daily Lipitor 80 mg po daily Cef 1 gm q24 h daily Status: Acute (2) Afib: New Onset A.fib Currently Rate Controlled Continue Metoprolol.T : 100 MG PO BID Will Initiate Eliquis 5 MG Q12 H Daily Status: Acute (3) UTI (urinary tract infection): Status: Acute (4) CVA (cerebral vascular accident): Status: Acute (5) Elevated troponin: Likely TYPE II M.I Status: Acute (6) Hypokalemia: Status: Acute (7) Hypertension: Status: Acute (8) Diabetes mellitus: Status: Acute Additional A&P Information DVT PPX : Lovenox 40 mg sc daily Code status :Full code Attestations Medical Necessity Statement*: Patient needs to be in hospital for the management of Ac encephalopathy 2/2 CVA/UTI Coding Level of Care Code Acute Policy Change Clerks Supervisor for [facility] Diagnoses Acute encephalopathy G93.40 Afib I48.91 UTI (urinary tract infection) N39.0 CVA (cerebral vascular accident) I63.9 Elevated troponin R77.8 Hypokalemia E87.6 Hypertension I10 Diabetes mellitus E11.9
[2020-04-27 11:34] LABS: Glucose Point of Care 195 mg/dL (70-110)
[2020-04-27] MEDS: potassium chloride ER 20 mEq Tablet 40 MEQ PO (11:36)
[2020-04-27] MEDS: enoxaparin 40 mg/0.4 mL Syringe SUBCUT (17:37)
[2020-04-27] MEDS: cefTRIAXone 1,000 MG in sodium chloride 0.9% (plus) 50 ML 100 MG IV (17:37)
[2020-04-27] MEDS: acetaminophen 325 mg Tablet 650 MG PO (19:53)
[2020-04-27] MEDS: atorvastatin 40 mg Tablet 80 MG PO (20:03)
[2020-04-27 20:55] LABS: Glucose Point of Care 279 mg/dL (70-110)
[2020-04-28] VITALS (17 sets, daily range): BP systolic 100–172; BP diastolic 70–99; PULSE 92–124; RESP 17–18; TEMP 36.4–37.1; O2SAT 92–96
[2020-04-28 06:33] LABS: Glucose Point of Care 186 mg/dL (70-110)
[2020-04-28 06:50] LABS: Red Blood Count 4.73 10^6/uL (4.1-5.3)
[2020-04-28 06:51] LABS: Basophils % 0.7 %; Eosinophils # 0.3 10^3/uL (0.0-0.8); Eosinophils % 5.5 %; Hematocrit 44.2 % (37.0-47.0); Hemoglobin 14.2 g/dL (11.5-15.3); Lymphocytes % 33.9 %; Mean Corpuscular HGB Conc 32.1 g/dL (30.0-36.0); Mean Corpuscular Volume 93.4 fL (81-99); Mean Platelet Volume 11.3 fL (7.4-10.4); Monocytes # 0.6 10^3/uL (0.2-0.9); Monocytes % 10.7 %; Neutrophils # 2.91 10^3/uL (1.8-7.7); Neutrophils % 48.7 %; Nucleated Red Blood Cells % 0 %; Platelet Count 267 10^3/cmm (130-400); Red Cell Distribution Width 13.2 % (12.1-15.1)
[2020-04-28 07:11] LABS: Alanine Aminotransferase 30 U/L (0-33); Albumin Level 3.6 g/dL (3.5-5.2); Alkaline Phosphatase 129 IU/L (35-105); Anion Gap 13.9 (5-19); Aspartate Amino Transferase 25 U/L (0-32); Blood Urea Nitrogen 13 mg/dL (8-23); Calcium 10.4 mg/dL (8.5-10.5); Carbon Dioxide 21 mmol/L (22-29); Chloride 108 mmol/L (98-107); Globulin 3.1 g/dL (1.3-4.6); Glucose 193 mg/dL (65-115); Osmolality Calculated 293 mOsm/kg (285-295); Potassium 3.9 mmol/L (3.5-5.1); Sodium 139 mmol/L (136-145); Total Bilirubin 0.5 mg/dL (0.15-1.2); Total Protein 6.7 g/dL (6.6-8.7)
--- NOTE | 2020-04-28 09:11 | PC.SOCIAL ---
*IMM UPDATE* Gave pt's IMM update in pt's room. Provided him copy of pg 2. @ [id number] Initialed, dated, timed and placed in chart.
[2020-04-28] MEDS: metoprolol tartrate 50 mg Tablet 100 MG PO (11:22)
[2020-04-28] MEDS: aspirin 81 mg EC Tablet PO (11:22)
[2020-04-28] MEDS: clopidogrel 75 mg Tablet PO (11:22)
[2020-04-28 12:09] LABS: Glucose Point of Care 217 mg/dL (70-110)
--- NOTE | 2020-04-28 12:52 | PM.DCS ---
Discharge Providers Date of Admission: 04/25/20 17:41 Date of Discharge: April 28, 2020 Attending Provider at Admission: Derick Onofre MD Attending Provider at Discharge: Derick Onofre MD Primary Care Provider: Omer Caban DO Diagnoses at Discharge Discharge Diagnosis (1) Acute encephalopathy: Status: Resolved (2) CVA (cerebral vascular accident): Status: Resolved (3) UTI (urinary tract infection): Status: Resolved (4) Afib: Status: Chronic (5) Hypertension: Status: Chronic (6) Diabetes mellitus: Status: Chronic Reason for Visit Reason for Visit: AMS Hospital Course Hospital Course 74 year old female with PMH of CVA with residual rt sided weakness, HTN, DM, came in with c/o experiencing fall 3 days back at her home after that she was having some confusion.She was admitted for the management of Ac encephalopathy. As a part of her encephalopathy work up C.T head without contrast as well as MRI Brain without contrast was done.MRI Brain without contrast was suggestive of ischemic stroke Ac to subacute ( Moderate size acute to subacute infarct involving the RIGHT parietal and medial RIGHT temporal lobe with an additional tiny lacunar infarct in the RIGHT frontal cortex. No hemorrhage. ) . C.T head without contrast showed no acute intracranial pathology. EKG: Atrial Fibrillation. 2 D ECHO:: normal LV size, LVEF : 45 % . Left ventricle appears to be diffusely hypokinetic. Carotid Doppler: Non Occlusive carotid study. She was managed for Ac/subacute Ischemic stroke was started on Aspirin, plavix high dose statin.For her newly diagnosed A.fib she was continued on Metoprolol.T 100 mg q12 h daily and her rate was well controlled. She was discharged on Eliquis 5 mg q12 h daily as well as on aspirin. The family was offered to see as outpatient which the patient/Family strongly turned down. They will prefer to follow with his PCP instead.Patient was also diagnosed with UTI during the hospital saty and was kept on cef and discharged on levofloxacin. Blood Culture :NTD, Rapid COVID : Negative. Xray B/L Hip: No fractures or dislocations are seen. Patient continued to work with P/T during hospital stay and was discharged home with Home health and home P/T. Physical Exam Const: COMMON NORMALS: patient oriented x3 HENMT: COMMON NORMALS: normocephalic and atraumatic HEAD & SCALP: normocephalic and atraumatic Chest: CHEST: Yes Symmetrical chest wall rise Resp: COMMON NORMALS: normal respiratory effort and clear to auscultation bilaterally EFFORT & INSPECTION: Yes symmetric chest movement AUSCULTATION: clear to auscultation bilaterally Cardio: COMMON NORMALS: regular rate, regular rhythm, S1 normal heart sound present, S2 normal heart sound present, No gallops present (Cardio), No murmurs present (Cardio), No rub (Cardio) and Peripheral pulses 2+ throughout RATE: regular rate RHYTHM: regular rhythm HEART SOUNDS: S1 normal heart sound present and S2 normal heart sound present PERIPHERAL PULSES: Peripheral pulses 2+ throughout GI: COMMON NORMALS: Normal to inspection, nondistended, normoactive bowel sounds present, Soft to palpation, non-tender, No hepatosplenomegaly present and no masses AUSCULTATION: Yes normoactive bowel sounds PALPATION: Yes Soft to palpation and Yes No hepatosplenomegaly present RECTAL EXAM: deferred Extremity: COMMON NORMALS: no clubbing, cyanosis or edema and no pedal edema Neuro: COMMON NORMALS: patient oriented x3 Discharge Data Data Completed and Pending: Completed Studies During Hospitalization Category Date Time Status CT head wo con* [id number] Stat Cat Scan 04/25/20 13:10 Completed XR chest 1V yves ble [id number] Stat Exams 04/25/20 18:12 Completed XR hip BI 3-4V wo /w pel [id number] Routi ne Exams 04/27/20 10:02 Completed MR head wo con* [id number] Routine MRI 04/26/20 17:36 Completed CV carotid duplex BI* [id number] Routine Ultrasound 04/26/20 18:35 Completed CV echo complete* [id number] Routine Ultrasound 04/26/20 18:35 Completed Pending at discharge Category Date Time Status Blood Culture Sta t Lab 04/25/20 16:45 Results Labs from last 24 hours 04/28/20 04/28/20 04/28/20 11:19 06:30 06:30 WBC 6.0 RBC 4.73 Hgb 14.2 Hct 44.2 MCV 93.4 MCH 30.0 MCHC 32.1 RDW 13.2 Plt Count 267 MPV 11.3 H Neut % (Auto) 48.7 Lymph % (Auto) 33.9 [place] % (Auto) 10.7 Eos % (Auto) 5.5 Baso % (Auto) 0.7 Neut # (Auto) 2.91 Lymph # (Auto) 2.0 [place] # (Auto) 0.6 Eos # (Auto) 0.3 Baso # (Auto) 0.0 Nucleated RBC % (a uto) 0 Nucleated RBCs # 0.0 Sodium 139 Potassium 3.9 Chloride 108 H Carbon Dioxide 21 L Anion Gap 13.9 BUN 13 Creatinine 0.8 GFR Calculation Not Reportable Glucose 193 H POC Glucose 217 H Calculated Osmolal ity 293 Calcium 10.4 Total Bilirubin 0.5 AST 25 ALT 30 Alkaline Phosphata se 129 H Total Protein 6.7 Albumin 3.6 Globulin 3.1 04/28/20 04/27/20 06:13 20:49 WBC RBC Hgb Hct MCV MCH MCHC RDW Plt Count MPV Neut % (Auto) Lymph % (Auto) [place] % (Auto) Eos % (Auto) Baso % (Auto) Neut # (Auto) Lymph # (Auto) [place] # (Auto) Eos # (Auto) Baso # (Auto) Nucleated RBC % (a uto) Nucleated RBCs # Sodium Potassium Chloride Carbon Dioxide Anion Gap BUN Creatinine GFR Calculation Glucose POC Glucose 186 H 279 H Calculated Osmolal ity Calcium Total Bilirubin AST ALT Alkaline Phosphata se Total Protein Albumin Globulin Vitals: Last Vital Signs Temp 97.6 F 04/28/20 11:22 Pulse 114 H 04/28/20 11:22 Resp 17 04/28/20 11:22 BP 116/73 04/28/20 11:22 Pulse Ox 94 04/28/20 11:22 Discharge Plan Discharge Patient Disposition: Home Condition: Stable Prescriptions: New atorvastatin 80 mg tablet 80 mg PO DAILY Qty: 30 RF: 0 Eliquis 5 mg tablet 5 mg PO BID Qty: 60 RF: 0 levofloxacin 500 mg tablet 500 mg PO DAILY 3 Days RF: 0 Continued metoprolol tartrate 100 mg tablet 100 mg PO BID RF: 0 aspirin 81 mg Tablet,Delayed Release (Dr/Ec) 81 mg PO BID RF: 0 glimepiride 2 mg tablet 6 mg PO QAM RF: 0 amlodipine 10 mg tablet 10 mg PO QAM RF: 0 metformin 1,000 mg tablet 1,000 mg PO BID RF: 0 Aleve 220 mg Tablet 220 mg PO Q12H PRN (Reason: Pain) RF: 0 losartan 100 mg tablet 100 mg PO DAILY RF: 0 Discharge Orders: Discharge Order (Routine); Ordered 04/28/20 Ordered By: Derick Onofre Referrals: [facility] [Outside] Omer Caban DO [Primary Care Provider] - 05/04/20 12:20 pm Discharge Diet: Diabetic Discharge Activity: Increase activity as tolerated Patient Instructions: Atrial Fibrillation, Atorvastatin (By mouth), Levofloxacin (By mouth), Apixaban (By mouth), Urinary Tract Infection in Women (GEN), Ischemic Stroke (GEN), Stroke Stoplight Discharge Attestations Time Spent in Discharge Care*: greater than 30 min Specific Discharge Activities: educating patient, educating and/or supporting family/caregiver, discussing with pcp/other providers, discussing with case manager specialist/social workers/dc planners, documenting/other paperwork and evaluating patient/reviewing data Status at Discharge: Cognitive status at discharge: cognitively intact, Behavioral status at discharge: cooperative, Functional status at discharge: other assisted ambulation Overall status at discharge: patient is back to baseline Quality Metrics Clinical Quality Measures During this hospital stay, did patient experience: Stroke Contraindication to Antithrombotic: Other Contraindication to Anticoagulation: Anticoagulation prescribed Contraindication to Statin: Statin prescribed Coding Level of Care Code Acute Early Childhood Assistant for g Fwd Exam Detailed Diagnoses Acute encephalopathy G93.40 CVA (cerebral vascular accident) I63.9 UTI (urinary tract infection) N39.0 Afib I48.91 Hypertension I10 Diabetes mellitus E11.9
[2020-04-28 16:33] LABS: Glucose Point of Care 234 mg/dL (70-110)
--- NOTE | 2020-05-02 08:54 | PC.SOCIAL ---
Talked with pharmacy this am and Eliquis not covered on insurance but will cover Xarelto. Called Dr Onofre and we discussed kidney function is good therefore order given to switch Eliquis to Xarelto 20mg once daily. Called and updated pharmacy and patient spouse of change in medication along with dose and frequency. No questions voiced.
== END 2020-04-28 18:27 | disposition home health service (06) | DRG 64 ==
LOC: ER 13:41 → MEDSURG 18:25
PROVIDERS: Admitting Provider Internal Medicine; Emergency Provider Family Medicine; PCP Family Medicine; Visit Provider Internal Medicine
DX: I63.9 Cerebral infarction, unspecified (principal); I21.A1 Myocardial infarction type 2; G93.40 Encephalopathy, unspecified; I69.951 Hemiplegia and hemiparesis following unspecified cerebrovascular disease affecting right dominant side; N39.0 Urinary tract infection, site not specified; R29.701 NIHSS score 1; I10 Essential (primary) hypertension; E11.9 Type 2 diabetes mellitus without complications; Z91.81 History of falling; I48.91 Unspecified atrial fibrillation; E87.6 Hypokalemia; Z79.82 Long term (current) use of aspirin; Z79.84 Long term (current) use of oral hypoglycemic drugs; M25.552 Pain in left hip; M25.551 Pain in right hip
CPT/HCPCS: 12345; 36415; 36416; 70450; 70551; 71045; 73521; 73522; 80053; 80306; 81001; 82962; 83735; 83880; 84145; 84443; 84484; 85025; 85610; 85730; 87040; 87077; 87086; 87186; 87426; 93005; 93306; 93880; 96372; 97110; 97116; 97162; 99283; J0696; J1650; J1815; J2060; J2270; J3475; J3490; J7030